=== PATIENT | female | born 1985 | race Caucasian/White ===

== ENCOUNTER 2016-11-19 12:39 | Emergency (ER) | payer MEDICAID ==
--- NOTE | 2016-11-19 14:45 | Emergency Department Record ---
History of Present Illness - General Chief Complaint: Difficulty Breathing Stated Complaint: GARIMA Time Seen by Provider: 11/19/16 13:35 Source: Patient Mode of Arrival: Ambulatory Limitations: No limitations - History of Present Illness Initial Comments: pt states she had hiccups and then it became difficult to breathe for 10 min. symptoms have resolved. pt was recently evaluated w a neg workup for syncope at [facility]. she is supposed to be getting a halter monitor by her family dr. she states that frequently feels like food gets stuck when she swallows. MD Complaint: Shortness of breath Onset/Timin -: Minutes(s) Radiation: Back Severity: Moderate Severity scale (1-10): 3 Quality: Aching Consistency: Constant Improves With: Nothing Worsens With: Nothing Context: Choking/aspiration Associated Symptoms: Denies other symptoms Treatment Prior to Arrival Comment:: none - Related Data Home Medications Medication Instructions Recorded Confirmed Last Taken Glimepiride [Amaryl] 4 mg PO DAILY 11/19/16 11/19/16 1 Day Ago ~11/18/16 Insulin Glargine,Hum.rec.anlog 25 unit SQ QAM 11/19/16 11/19/16 1 Day Ago [Lantus] ~11/18/16 Sertraline HCl [Zoloft] 50 mg PO DAILY 11/19/16 11/19/16 1 Day Ago ~11/18/16 Allergies Allergy/AdvReac Type Severity Reaction Status Date / Time Penicillins Allergy Intermediate HIVES Verified 11/19/16 13:21 tramadol HCl [From Ultram] Allergy Intermediate HIVES Verified 11/19/16 13:21 Travel Screening - Travel/Exposure Within Last 30 Days Have you traveled within the last 30 days?: No - Travel/Exposure Within Last Year Have you traveled outside the [place] in the last year?: No - Additonal Travel Details Have you been exposed to anyone with a communicable illness?: No - Travel Symptoms Symptom Screening: None Review of Systems Reviewed: No additional complaints except as noted below Constitutional: Reports: As per HPI. Denies: Chills, Fever, Malaise, Night sweats, Weakness, Weight change Eyes: Reports: As per HPI. Denies: Eye discharge, Eye pain, Photophobia, Vision change ENT: Reports: As per HPI. Denies: Congestion, Dental pain, Ear pain, Epistaxis , Hearing loss, Throat pain Respiratory: Reports: As per HPI. Denies: Cough, Dyspnea, Hemoptysis, Stridor, Wheezes Cardiovascular: Reports: As per HPI. Denies: Arrhythmia, Chest pain, Dyspnea on exertion, Edema, Murmurs, Orthopnea, Palpitations, Paroxysmal nocturnal dyspnea, Rheumatic Fever, Syncope Endocrine: Reports: As per HPI. Denies: Fatigue, Heat or cold intolerance, Polydipsia, Polyuria Gastrointestinal: Reports: As per HPI. Denies: Abdominal pain, Constipation, Diarrhea, Hematemesis, Hematochezia, Melena, Nausea, Vomiting Genitourinary: Reports: As per HPI. Denies: Abnormal menses, Discharge, Dyspareunia, Dysuria, Frequency, Hematuria, Incontinence, Retention, Urgency Musculoskeletal: Reports: As per HPI. Denies: Arthralgia, Back pain, Gout, Joint swelling, Myalgia, Neck pain Skin: Reports: As per HPI. Denies: Bruising, Change in color, Change in hair/ nails, Lesions, Pruritus, Rash Neurological: Reports: As per HPI. Denies: Abnormal gait, Confusion, Headache, Numbness, Paresthesias, Seizure, Tingling, Tremors, Vertigo, Weakness Psychiatric: Reports: As per HPI. Denies: Anxiety, Auditory hallucinations, Depression, Homicidal thoughts, Suicidal thoughts, Visual hallucinations Hematological/Lymphatic: Reports: As per HPI. Denies: Anemia, Blood Clots, Easy bleeding, Easy bruising, Swollen glands Past Medical History - SOCIAL HISTORY Smoking Status: Former smoker Alcohol Use: Rare Drug Use: None - RESPIRATORY Hx Respiratory Disorders: Yes Hx Bronchitis: Yes (hx of acute bronchitis) - CARDIOVASCULAR Hx Cardio Disorders: Yes Comment:: heart murmur - NEURO Hx Dizziness: Yes (black out spells) - GI Hx Reflux: Yes - Hx Genitourinary Disorders: Yes Comment:: Polycystic ovaries - ENDOCRINE Hx Endocrine Disorders: Yes Hx Diabetes: Yes (Type II) - MUSCULOSKELETAL Hx Musculoskeletal Disorders: Yes Hx Arthritis: Yes (osteo) Comment:: DJD - PSYCH Hx Psych Problems: No - HEMATOLOGY/ONCOLOGY Hx Hematology/Oncology Disorders: No Family Medical History Any Significant Family History?: Yes Hx Cancer: Mother, Grandparents Hx Diabetes: Grandparents Hx Heart Disease: Father Hx Resp Disorders: Brother/Sister Physical Exam - General General Appearance: Alert, Oriented x3, Cooperative, No acute distress - Head Head exam: Normal inspection - Eye Eye exam: Normal appearance, PERRL, EOMI Pupils: Normal accommodation - ENT ENT exam: Normal exam, Mucous membranes moist, Normal external ear exam, Normal orophraynx Ear exam: Normal external inspection. negative: External canal tenderness Nasal Exam: Normal inspection. negative: Discharge, Sinus tenderness Mouth exam: Normal external inspection, Tongue normal Teeth exam: Normal inspection. negative: Dental caries Throat exam: Normal inspection. negative: Tonsillar erythema, Tonsillar exudate - Neck Neck exam: Normal inspection, Full ROM. negative: Tenderness - Respiratory Respiratory exam: Normal lung sounds bilaterally. negative: Respiratory distress - Cardiovascular Cardiovascular Exam: Regular rate, Normal rhythm, Normal heart sounds - GI/Abdominal GI/Abdominal exam: Soft, Normal bowel sounds. negative: Tenderness - Rectal Rectal exam: Deferred - exam: Deferred - Extremities Extremities exam: Normal inspection, Full ROM, Normal capillary refill. negative: Tenderness - Back Back exam: Reports: Normal inspection, Full ROM. Denies: Muscle spasm, Rash noted, Tenderness - Neurological Neurological exam: Alert, CN II-XII intact, Normal gait, Oriented X3 - Psychiatric Psychiatric exam: Normal affect, Normal mood - Skin Skin exam: Dry, Intact, Normal color, Warm Course Vital Signs 11/19/16 13:10 Temperature 97.7 F Pulse Rate 97 H Respiratory 20 Rate Blood Pressure 116/75 Pulse Ox 92 L Disposition Disposition: Discharge Clinical Impression: Esophageal spasm Disposition: Home, Self-Care Condition: (1) Good Instructions: Esophageal Spasm (ED) Additional Instructions: follow up with family docto for halter monitor and with GI doctor for endoscopy. eat small bites of thoroughly chewed food. return sooner if worse. Forms: Patient Portal Access
== END 2016-11-19 14:54 | disposition home or self-care (01) ==
LOC: ER 12:39
DX: K22.4 Dyskinesia of esophagus (principal); R06.00 Dyspnea, unspecified
CPT/HCPCS: 71020; 99283